=== PATIENT | female | born 1990 | race Caucasian/White ===

== ENCOUNTER → 2016-05-17 | Outpatient (CLI) | payer OTHER ==
--- NOTE | 2016-05-17 08:14 | US ---
EXAMINATION TYPE: US OB >= 14 wk fetus DATE OF EXAM: 05/17/2016 7:48 AM COMPARISON: First trimester ultrasound November 07, 2015. Limited third trimester ultrasound May 08, 2016 CLINICAL HISTORY: [id number] LARGE FOR DATES TECHNIQUE: Transabdominal (TA) pelvic ultrasound. GESTATIONAL AGE / DATING Physician Established: (36 weeks/0 days) EDC: 06/14/2016 Dates by LMP: does not correlate Dates by First Scan: (36 weeks/0 days) EDC: 06/14/2016 Dates by Current Scan: (35 weeks/3 days) EDC: 06/18/2016 SURVEY IUP: Single PLACENTA: Anterior PREVIA: No Previa KATHY: 7.1 cm Oligohydramnios borderline CERVICAL LENGTH (transabdominal: norm > 3.0cm): 4.4 cm BIOMETRY PRESENTATION: Vertex BPD: 8.7 cm 35 weeks / 1 days HC: 31.8 cm 35 weeks / 6 days AC: 30.5 cm 34 weeks / 4 days FL: 7.0 cm 36 weeks / 0 days ESTIMATED WEIGHT IN GRAMS: 2583 grams ESTIMATED WEIGHT IN LBS/OZS: 5 lbs. 11 oz. WEIGHT PERCENTAGE BASED ON ESTABLISHED DATES: 26% HC/AC: 1.0 Normal FL/AC: 23% Normal HEART RATE: 142 bpm RHYTHM: Normal TECHNOLOGIST IMPRESSION: low fluid Amniotic fluid index is 7.1 which is lower limits of normal, and is measured decreased from most rece nt study at 10.0. IMPRESSION: As above. Office aware of today's KATHY value.
== END | disposition home or self-care (01) ==
LOC: RADUSWWP 07:19
PROVIDERS: ATTEND Obstetrics & Gynecology
DX: O36.63X0 Maternal care for excessive fetal growth, third trimester, not applicable or unspecified (principal); Z3A.36 36 weeks gestation of pregnancy
CPT/HCPCS: 76805

== ENCOUNTER 2016-05-21 20:53 | Inpatient (IN) | payer OTHER ==
[2016-05-21 21:25] LABS: Appearance,Urine Clear (Clear); Bilirubin,Urine Negative (Negative); Glucose,Urine (UA) Negative (Negative); Ketones,Urine Negative (Negative); Leukocyte Esterase,Urine Negative (Negative); Nitrite,Urine Negative (Negative); Protein,Urine Negative (Negative); Specific Gravity,Urine 1.005 (1.001-1.035); UA Billing (MACRO vs. MICRO) CHEM; Urobilinogen,Urine <2.0 mg/dL (<2.0)
[2016-05-21 22:55] LABS: Basophils % (A) 0 %; CH 28.3; Eosinophils # (A) 0.1 k/uL (0-0.7); Eosinophils % (A) 2 %; HCT 33.7 % (34.0-46.0); HDW 2.47; HGB 11.4 gm/dL (11.4-16.0); Luc # (Auto) 0.11; Luc % (Auto) 2; Lymphocytes # (A) 0.9 k/uL (1.0-4.8); Lymphocytes % (A) 13 %; MCH 28.2 pg (25.0-35.0); MCHC 33.7 g/dL (31.0-37.0); MCV 83.6 fL (80.0-100.0); Mean Platelet Volume 6.7; Monocytes # (A) 0.3 k/uL (0-1.0); Monocytes % (A) 5 %; Neutrophils # (A) 5.5 k/uL (1.3-7.7); Neutrophils % (A) 79 %; RBC 4.04 m/uL (3.80-5.40); RDW 13.7 % (11.5-15.5); WBC (Perox) 7.51
[2016-05-21 23:10] LABS: ALT 32 U/L (9-52); AST 20 U/L (14-36); LDH 365 U/L (313-618); Non-African American GFR(MDRD) >60 (>60 ml/min/1.73 sqM); Uric Acid 6.5 mg/dL (3.7-7.4)
[2016-05-21 23:18] VITALS: BMI 45.1
--- NOTE | 2016-05-21 23:49 | P.HPOB ---
History of Present Illness H&P Date: 05/21/16 Chief Complaint: High blood pressure and low amniotic fluid. This patient is a 26-year-old 1 para 0 female estimated date of confinement 06/14/2016 estimated gestational age 36-4/7 weeks gestation who presents to labor and delivery with complaints of low amniotic fluid and she also "knows her blood pressure is high". Patient states that she did not check her blood pressure but it has been high in the office and she has concerns about at this evening. Patient also states that she has low amniotic fluid but has not been leaking. Patient's blood pressures in the office most recently have ranged from 140-156/84-100. Patient apparently had a preeclampsia evaluation 2 weeks ago that was negative, however most recent ultrasound on May 17 showed the amniotic fluid index to be low at 7.1 cm. Patient's blood pressures remain elevated here tonight with the highest being 150/94 and 165/91. Patient denies any headaches, but does note that she is swollen. Patient has had approximately 120 pound weight gain during this . care is per Dr. Harris. Review of Systems Constitutional: Denies chills, Denies fever Cardiovascular: Denies chest pain, Denies shortness of breath Respiratory: Denies cough Gastrointestinal: Reports heartburn Genitourinary: Reports as per HPI, Reports Menstruation: Reports amenorrhea Musculoskeletal: Denies myalgias Psychiatric: Denies anxiety, Denies depression Endocrine: Denies fatigue, Denies weight change Past Medical History Past Medical History: Asthma History of Any Multi-Drug Resistant Organisms: None Reported Past Surgical History: No Surgical Hx Reported Past Anesthesia/Blood Transfusion Reactions: No Reported Reaction Past Psychological History: Depression Smoking Status: Never smoker Past Alcohol Use History: None Reported Past Drug Use History: None Reported - Past Family History Father Family Medical History: No Reported History Medications and Allergies Home Medications Medication Instructions Recorded Confirmed Type Pnv with Ca,No.72/Iron/FA 1 tab PO DAILY 11/07/15 05/21/16 History [ Plus Tablet] Allergies Allergy/AdvReac Type Severity Reaction Status Date / Time No Known Allergies Allergy Verified 05/21/16 21:09 Exam - Vital Signs Vital signs: Vital Signs Temp Pulse Resp BP 05/21/16 23:09 97.2 F L 106 H 16 141/91 Intake and Output 05/21/16 05/21/16 05/22/16 14:59 22:59 06:59 Other: Weight 134.717 kg 134.717 kg Patient Weight 05/22/16 06:59 Weight 134.717 kg - OBG Physical Exam Abdomen: bowel sounds normal, no diffuse tenderness, no bruit present, no guarding noted, no hepatomegaly, no splenomegaly, no mass Vulva: both: normal Uterus: enlarged Results Uric acid is normal however slightly elevated at 6.5. Labs otherwise were normal. 24 urine is in process. Result Diagrams: 05/21/16 22:15 05/21/16 22:15 Abnormal Lab Results - Last 24 Hours (Table) 05/21/16 Range/Units 22:15 Hct 33.7 L (34.0-46.0) % Lymphocytes # 0.9 L (1.0-4.8) k/uL Assessment and Plan (1) Third trimester Narrative/Plan: This is a 26-year-old 1 para 0 female 36-4/7 weeks gestation with hypertension and known oligohydramnios. Plan at this time is to admit this patient for serial blood pressures, repeat 24-hour urine, and repeat ultrasound in the morning. At this time there is no evidence of maternal compromise. Dr. Harris will resume care in the morning and decide further antepartum surveillance versus delivery. Status: Acute (2) Gestational hypertension Status: Acute (3) Oligohydramnios Status: Acute
--- NOTE | 2016-05-22 11:35 | US ---
EXAMINATION TYPE: US OB >= 14 wk fetus DATE OF EXAM: 05/22/2016 10:17 AM COMPARISON: US on PACS May 17, 2016. CLINICAL HISTORY: Complete OB US TECHNIQUE: Transabdominal (TA) pelvic ultrasound GESTATIONAL AGE / DATING Physician Established: (36 weeks/5 days) EDC: 06/14/2016 Dates by LMP: 07/27/15 (40+ Does not correlate. EDC: 05/02/16 Dates by First Scan: (36 weeks/5 days) EDC: 06/14/16 Dates by Current Scan: (35 weeks/4 days) EDC: 06/22/16 SURVEY IUP: Single PLACENTA: Anterior PREVIA: No Previa KATHY: 17.5 cm CERVICAL LENGTH (transabdominal: norm > 3.0cm): 3.2 cm (Supplemental transvaginal imaging performed to verify cervical length.) BIOMETRY PRESENTATION: Vertex LIE: spine to maternal left BPD: 8.8 cm 35 weeks / 5 days HC: 32.0 cm 36 weeks / 0 days AC: 31.4 cm 35 weeks / 3 days FL: 7.0 cm 36 weeks / 0 days ESTIMATED WEIGHT IN GRAMS: 2735 grams ESTIMATED WEIGHT IN LBS/OZS: 6 lbs. 0 oz. WEIGHT PERCENTAGE BASED ON ESTABLISHED DATES: 26.9% HC/AC: 1.0 FL/AC: 22.0 HEART RATE: 154 bpm RHYTHM: Normal TECHNOLOGIST IMPRESSION: Viable intrauterine . Amniotic fluid index is upper limits of norm al measuring 17.5 cm, growth is appropriate. Single live intrauterine gestation is redemonstrated. biometry measurements remain congruent. A mniotic fluid index is measured in the upper limits of normal on today's study. IMPRESSION: As above.
[2016-05-23 00:28] LABS: Mis test requested (Non-blood) 24 HOUR URINE TP
--- NOTE | 2016-05-23 08:37 | P.PN ---
Progress Note - Text 26 year old is 36 weeks 6 days today. She was admitted for increased BPs and to obtain a 24 hour urine. Her BPs are remaining elevated and 24 hour urine protein is 350mg. She has gestational hypertension since 30 weeks and now mild pre-eclampsia. I discussed a plan with the patient of cervical ripening tonight for induction tomorrow at 37 weeks. NSTs are reactive and she is not vero. Cervix is Closed/50/-3. She denies headache, vision changes, shortness of breath or swelling.
[2016-05-23] MEDS ORDERED: DINOPROSTONE 10 MG INSERT.ER VAGINAL ONE (09:00)
[2016-05-24] MEDS ORDERED: METHYLERGONOVINE 0.2 MG/ML 1 ML AMP IM PRN (05:02)
[2016-05-24] MEDS ORDERED: CARBOPROST TROMETHAMINE 250 MCG/ML 1 ML AMP IM PRN (05:02)
[2016-05-24] MEDS ORDERED: LIDOCAINE 1% (PF) 10 MG/ML (30 ML SDV) SQ PRN (05:02)
[2016-05-24] MEDS ORDERED: OXYTOCIN 10 UNIT/ML 1 ML VIAL IM PRN (05:02)
[2016-05-24] MEDS ORDERED: TERBUTALINE 1 MG/ML VIAL SQ PRN (05:02)
[2016-05-24] MEDS ORDERED: OXYTOCIN 30 UNITS/500 ML NS 30 UNIT in SALINE 1 500ML.BAG IV SCH (05:15)
[2016-05-24] MEDS: LACTATED RINGERS 1,000 ML IV SCH ×4 (05:45→21:40)
[2016-05-24 05:56] LABS: Basophils % (A) 0 %; CH 28.2; Eosinophils # (A) 0.1 k/uL (0-0.7); Eosinophils % (A) 1 %; HCT 36.4 % (34.0-46.0); HDW 2.46; HGB 12.1 gm/dL (11.4-16.0); Luc # (Auto) 0.16; Luc % (Auto) 1; Lymphocytes # (A) 1.7 k/uL (1.0-4.8); Lymphocytes % (A) 14 %; MCH 27.7 pg (25.0-35.0); MCHC 33.3 g/dL (31.0-37.0); MCV 83.2 fL (80.0-100.0); Mean Platelet Volume 6.7; Monocytes # (A) 0.5 k/uL (0-1.0); Monocytes % (A) 4 %; Neutrophils # (A) 9.1 k/uL (1.3-7.7); Neutrophils % (A) 79 %; RBC 4.37 m/uL (3.80-5.40); RDW 13.8 % (11.5-15.5); WBC 11.5 k/uL (3.8-10.6); WBC (Perox) 11.75
[2016-05-24 06:05] LABS: Partial Thromboplastin Time 26.4 sec (22.0-30.0); Prothrombin Time 9.8 sec (9.0-12.0)
[2016-05-24] MEDS: BUTORPHANOL 1 MG/ML 1 ML VIAL IV PRN ×2 (16:21→18:56)
[2016-05-24] MEDS ORDERED: CITRIC ACID-SODIUM CITRATE 15 ML CUP PO ONE (20:09)
[2016-05-24] MEDS ORDERED: ceFAZolin 3 GM in SODIUM CHLORIDE 0.9% 100 ML IVPB ONE (20:09)
[2016-05-24] MEDS ORDERED: OXYTOCIN 10 UNIT/ML 1 ML VIAL IM ONE (20:48)
[2016-05-24] MEDS ORDERED: KETOROLAC 30 MG/ML 1 ML VIAL ONE (20:48)
[2016-05-24] MEDS ORDERED: MORPHINE SULFATE (PF) 0.3 MG/0.3 ML SYR ONE (20:48)
[2016-05-24] MEDS ORDERED: ONDANSETRON 4 MG/2 ML VIAL ONE (20:48)
[2016-05-24] MEDS ORDERED: NALBUPHINE 10 MG/ML AMPUL ONE (20:48)
[2016-05-24] MEDS ORDERED: ZOLPIDEM 5 MG TAB PO PRN (21:28)
[2016-05-24] MEDS ORDERED: METOCLOPRAMIDE 5 MG/ML 2 ML VIAL IVP PRN (21:28)
[2016-05-24] MEDS ORDERED: SIMETHICONE 80 MG CHEWABLE PO PRN (21:28)
[2016-05-24] MEDS ORDERED: KETOROLAC 30 MG/ML 1 ML VIAL IVP PRN (21:28)
[2016-05-24] MEDS ORDERED: diphenhydrAMINE 25 MG CAP PO PRN (21:28)
[2016-05-24] MEDS ORDERED: LANOLIN CREAM 5 GM TUBE TOPICAL PRN (21:28)
[2016-05-24] MEDS ORDERED: Acetaminophen-Codeine 300-30mg TAB PO PRN (21:28)
[2016-05-24] MEDS ORDERED: diphenhydrAMINE 50 MG CAP PO PRN (21:28)
[2016-05-24] MEDS ORDERED: NALOXONE 0.4 MG/ML 1 ML VIAL IV PRN (21:28)
[2016-05-24] MEDS ORDERED: ONDANSETRON 4 MG/2 ML VIAL IVP PRN (21:28)
[2016-05-24] MEDS ORDERED: ACETAMINOPHEN TAB 325 MG TAB PO PRN (21:28)
[2016-05-24] MEDS ORDERED: diphenhydrAMINE 50 MG/ML 1 ML VIAL IVP PRN ×2 (21:28)
--- NOTE | 2016-05-24 21:35 | P.OP ---
Date of Procedure: 05/24/16 Preoperative Diagnosis: 1. at 37 weeks 2. Mild preeclampsia 3. Failure to progress Postoperative Diagnosis: 1. at 37 weeks 2. Mild preeclampsia 3. Failure to progress Procedure(s) Performed: Primary low transverse Anesthesia: spinal Surgeon: Melonie Harris Outside Sales Engineer #1: Jesus Toney Estimated Blood Loss (ml): 600 IV fluids (ml): 800 Urine output (ml): 200 Pathology: other (Placenta) Condition: stable Disposition: floor Indications for Procedure: 26-year-old presented with increased blood pressures. She was admitted for 24-hour urine protein which came back 350 mg. She was diagnosed with mild preeclampsia and at 37 weeks induction of labor was indicated. Her cervix was closed, 50% effaced and -3 station. Cervidil was placed and left for 12 hours. In the morning she was fingertip to 1 cm dilated but still thick. Pitocin was started. Amniotomy was performed around 12:30 in the afternoon. Despite Pitocin and adequate contractions she did not dilate past 1 cm. heart tones remained 140-145 with moderate variability and reactive. Informed consent was obtained and section called. Operative Findings: Viable male, Apgars 4 at 1 minute, 7 at 5 minutes, 9 at 10 minutes. Weight 6 pounds. Description of Procedure: Patient was taken to the operating room where spinal anesthesia was found be adequate. She was prepped and draped in normal sterile fashion in dorsal supine position with a leftward tilt. Pfannenstiel skin incision was made the scalpel and carried through to the underlying layer of fascia with the scalpel. Fascia was incised in midline and carried bilaterally with the Lafleur scissors. The superior aspect of the fascial incision was grasped with Ruth clamps elevated and the underlying rectus muscles dissected off with the Lafleur's. Attention was then turned to inferior aspect of same incision which in a similar fashion was grasped tented up and the underlying rectus muscles dissected off with the Lafleur's. The rectus muscles were the midline and the peritoneum was identified tented up and entered sharply with the scalpel. The incision was extended superiorly and inferiorly with good visualization of the bladder. The bladder blade was inserted and the vesicouterine peritoneum was incised the Metzenbaums then carried bilaterally and bladder flap created digitally. A low transverse incision was then made on the uterus with the scalpel. This was carried bilaterally and digital manner. 's head delivered atraumatically, nose and mouth bulb suctioned, cord clamped and cut, handed off to waiting nurses. Apgars 4,7, 9 weight 6 lbs. Placenta delivered manually, intact with three-vessel cord. The uterus is exteriorized and cleared of all clots and debris. The uterine incision was closed with 0 Vicryl in a running locked fashion. Second layer of the same sutures used in imbricating fashion to obtain excellent hemostasis. Bladder flap was then reapproximated using 2-0 Vicryl in a running fashion. Both ovaries and tubes appeared normal. The uterus was placed back into the abdomen. The peritoneum was reapproximated using 2-0 Vicryl in a running fashion. The muscles were reapproximated using 2-0 Vicryl in interrupted fashion. The fascia was reapproximated using 0 Vicryl in a running fashion. The subcutaneous tissues closed with 3-0 Vicryl running fashion. The skin was closed art. Patient tolerated the procedure well, sponge and instrument counts were correct times 2 and she was taken to the recovery room in stable condition.
[2016-05-24] MEDS: OXYTOCIN 30 UNITS/500 ML NS 30 UNIT in SALINE 1 500ML.BAG IV SCH (23:42)
[2016-05-25] MEDS: LACTATED RINGERS 1,000 ML IV SCH ×2 (05:19→20:50)
[2016-05-25] MEDS: OXYTOCIN 30 UNITS/500 ML NS 30 UNIT in SALINE 1 500ML.BAG IV SCH ×2 (05:22→20:51)
[2016-05-25] MEDS ORDERED: diphenhydrAMINE 50 MG/ML 1 ML VIAL IVP PRN (08:13)
[2016-05-25] MEDS ORDERED: KETOROLAC 30 MG/ML 1 ML VIAL IVP PRN (08:13)
[2016-05-25] MEDS ORDERED: MORPHINE SULFATE 4 MG/ML SYRINGE IVP PRN (08:13)
[2016-05-25] MEDS ORDERED: NALOXONE 0.4 MG/ML 1 ML VIAL IV PRN (08:13)
[2016-05-25] MEDS ORDERED: NALBUPHINE 10 MG/ML AMPUL IV PRN (08:13)
--- NOTE | 2016-05-25 08:14 | P.PNOBGPC ---
Subjective - Subjective Principal diagnosis: Status post primary low transverse postop day #1 Interval history: Patient seen and examined. Denies nausea, vomiting, chest pain, shortness of breath or calf pain. No flatus yet Patient reports: Reports appetite normal, Reports pain well controlled, Reports ambulating normally : doing well Objective - Vital Signs Latest vital signs: Vital Signs Temp Pulse Resp BP Pulse Ox 05/25/16 03:44 98.1 F 75 16 142/90 99 05/24/16 23:30 97.6 F 85 16 135/72 05/24/16 23:00 72 16 136/66 05/24/16 22:30 96.8 F L 79 16 120/73 05/24/16 22:15 80 16 129/66 05/24/16 22:00 79 16 130/60 05/24/16 21:45 77 16 133/65 99 05/24/16 21:30 96.7 F L 99 16 116/55 99 Intake and Output 05/24/16 05/25/16 05/25/16 22:59 06:59 14:59 Intake Total 800 Output Total 1600 500 Balance -800 -500 Intake: IV 800 Output: Urine 400 500 Uretheral (Desai) 300 Estimated Blood Loss 1200 Other: # Voids 1 # Bowel Movements 0 - Exam Lungs: bilateral: normal Chest: Normal S1, Normal S2 Extremities: Present: normal Abdomen: Present: normal appearance, soft. Absent: distention, tenderness Incision: Present: normal, dry, intact Uterus: Present: normal, firm Assessment and Plan (1) Mild preeclampsia Current Visit: Yes Status: Acute Code(s): O14.00 - MILD TO MODERATE PRE- ECLAMPSIA, UNSPECIFIED TRIMESTER SNOMED Code(s): 03773552 (2) Status post primary low transverse section Narrative/Plan: 1. Continue postoperative care 2. Increasing dilation 3. Regular diet with flatus Current Visit: Yes Status: Acute Code(s): Z98.891 - HISTORY OF UTERINE SCAR FROM PREVIOUS SURGERY SNOMED Code(s): 146238016
[2016-05-25 08:40] LABS: Basophils % (A) 0 %; CH 28.1; CHCM 33.4; Eosinophils % (A) 0 %; HCT 32.9 % (34.0-46.0); HDW 2.42; Luc # (Auto) 0.24; Luc % (Auto) 2; Lymphocytes # (A) 2.3 k/uL (1.0-4.8); Lymphocytes % (A) 19 %; MCH 28.3 pg (25.0-35.0); MCHC 33.5 g/dL (31.0-37.0); MCV 84.7 fL (80.0-100.0); Mean Platelet Volume 6.8; Monocytes # (A) 0.4 k/uL (0-1.0); Monocytes % (A) 4 %; Neutrophils # (A) 8.7 k/uL (1.3-7.7); Neutrophils % (A) 75 %; RBC 3.88 m/uL (3.80-5.40); RDW 13.9 % (11.5-15.5); WBC 11.7 k/uL (3.8-10.6); WBC (Perox) 12.29
--- NOTE | 2016-05-25 09:03 | P.PN ---
Progress Note - Text Postop day 1 from under spinal anesthesia with intrathecal morphine given for postop pain management. Patient is doing well. Pain is well controlled. On visual analog scale 3/10 Mild itching present No nausea or vomiting reported. No Headache or weakness and numbness in the legs. No complications from spinal anesthesia.
[2016-05-25] MEDS: SENNOSIDES-DOCUSATE SODIUM 1 EACH TAB PO SCH ×2 (16:10→19:39)
[2016-05-26] MEDS: SENNOSIDES-DOCUSATE SODIUM 1 EACH TAB PO SCH ×2 (09:44→19:39)
--- NOTE | 2016-05-26 12:16 | P.PNOBGPC ---
Subjective - Subjective Principal diagnosis: Status post primary section postoperative day #2 Interval history: Patient is doing well. She is breast-feeding. She has been urinating without difficulty. She is passing flatus and bowel movement. Patient reports: Reports appetite normal, Reports voiding normally, Reports pain well controlled, Reports ambulating normally : doing well, nursing well Objective - Vital Signs Latest vital signs: Vital Signs Temp Pulse Resp BP Pulse Ox 05/26/16 08:00 98.2 F 104 H 20 141/80 98 05/26/16 00:00 97.7 F 99 18 145/67 100 05/25/16 20:00 98.1 F 88 18 125/78 98 05/25/16 16:00 98.2 F 90 20 133/70 98 Intake and Output 05/25/16 05/26/16 05/26/16 22:59 06:59 14:59 Output Total 450 500 Balance -450 -500 Output: Urine 450 500 Other: # Voids 1 1 - Exam Extremities: Present: normal. Absent: tenderness Abdomen: Present: normal appearance, soft (Positive bowel sounds 4). Absent: distention, tenderness Incision: Present: normal, dry, intact. Absent: erythematous Uterus: Present: normal, firm. Absent: tenderness Assessment and Plan (1) delivery delivered Narrative/Plan: Impression is status post delivery postoperative day #2. Patient is doing well but would like to stay 1 more day. Will anticipate discharge home tomorrow. Current Visit: Yes Status: Acute Code(s): O82 - ENCOUNTER FOR DELIVERY WITHOUT INDICATION SNOMED Code(s): 857071394
--- NOTE | 2016-05-26 12:22 | P.DS ---
Providers Date of admission: 05/23/16 12:00 Expected date of discharge: 05/27/16 Attending physician: Melonie Harris Primary care physician: Melonie Harris - Discharge Diagnosis(es) (1) delivery delivered Current Visit: Yes Status: Acute Hospital Course: This is a 26-year-old female 1 para 0 at 37 weeks who initially presented with elevated blood pressures. She underwent a 24-hour urine collection which did show elevated protein. She therefore underwent induction of labor. She did require a primary low transverse section secondary to failure to progress. She delivered a viable male infant with scores of 9 at 1 minute and 9 at 5 minutes and infant weight of 6 pounds on 2016. Her postoperative course is essentially uncomplicated. She is currently postoperative day #2 and is passing flatus and bowel movement. She is urinating without difficulty. She is breast-feeding but baby is somewhat fussy. Vital signs are stable with blood pressures in the 140s over 80s. Abdomen is soft with positive bowel sounds 4 and incision clean dry and intact. Extremities show negative Homans. Impression is status post primary low transverse section postoperative day #2. Plan is to discharge home tomorrow morning. Gwen will be removed and Steri-Strips placed prior to discharge. She will be given prescriptions for pain medication and a breast pump. She is advised to follow up with Dr. Harris in 1 week in the office for blood pressure and postoperative check. She is also advised to follow up in the office in 6 weeks for a check. Routine postoperative instructions are given. She is advised to call the office if she has any further questions or concerns prior to her appointment times. Procedures: 24 urine collection Oxytocin induction of labor Primary low transverse section on 05/24/2016 Patient Condition at Discharge: Stable Plan - Discharge Summary New Discharge Prescriptions: Acetaminophen-Codeine 300-30mg [Tylenol w/codeine #3] 1 each PO Q4HR PRN #30 tab PRN Reason: Mild Pain Ibuprofen [Motrin] 600 mg PO Q6HR PRN #60 tab PRN Reason: Mild Pain Or Fever >= 100.5 Discharge Medication List Pnv with Ca,No.72/Iron/FA [ Plus Tablet] 1 tab PO DAILY 11/07/15 [ History] Acetaminophen-Codeine 300-30mg [Tylenol w/codeine #3] 1 each PO Q4HR PRN #30 tab 05/26/16 [Rx] Ibuprofen [Motrin] 600 mg PO Q6HR PRN #60 tab 05/26/16 [Rx] Follow up Appointment(s)/Referral(s): Melonie Harris DO [Primary Care Provider] - 1 Week Activity/Diet/Wound Care/Special Instructions: Instructions 1. Do not begin any exercise program for 3 weeks. 2. Do not resume sexual relations for 3 weeks or longer if uncomfortable. 3. You may take tub baths or showers at any time. 4. You may use tampons if desired after 3 weeks. 5. Keep the area of episiotomy (stitches) clean and dry. 6. If you are not nursing, wear a good fitting, supportive bra during the day and limit fluid intake for at least 1 week to prevent breast engorgement. 7. Call the office, [phone], within the next week to make appointment for your 6 week checkup if it has not already been made. 8. Report any of the following occurrences to the doctor promptly: a. Heavy, excessive bleeding b. Chills, fever c. Burning or frequency of urination d. Pain or redness and breasts if nursing e. Increasing pain or swelling in episiotomy (stitches). In addition to the above instructions, the following additional should be followed: 1. No heavy lifting or straining (exercising) until after 6 week checkup. 2. Keep abdominal incision clean and dry: You may wear a dressing if more comfortable. 3. Make office appointment for 10 days after going home or as instructed by her doctor. Discharge Disposition: HOME SELF-CARE
[2016-05-26] MEDS: Acetaminophen-Codeine 300-30mg TAB PO PRN (19:38)
[2016-05-26 20:56] VITALS: RESP 18
[2016-05-26] MEDS: IBUPROFEN 600 MG TAB PO PRN (23:00)
[2016-05-27] MEDS: Acetaminophen-Codeine 300-30mg TAB PO PRN (03:53)
[2016-05-27] MEDS: IBUPROFEN 600 MG TAB PO PRN (08:08)
[2016-05-27] MEDS: SENNOSIDES-DOCUSATE SODIUM 1 EACH TAB PO SCH (08:09)
[2016-05-27 08:16] VITALS: TEMP 98.1
[2016-05-27 10:01] VITALS: BP 146/87; PULSE 91
== END 2016-05-27 16:00 | disposition home or self-care (01) | DRG 765 ==
LOC: FBPOP 20:53 → 4FBP 21:58 → OBSVTOIN 05-23 12:00
PROVIDERS: ADMIT Obstetrics & Gynecology; ATTEND Obstetrics & Gynecology
PROC: 10907ZC Drainage of Amniotic Fluid, Therapeutic from Products of Conception, Via Natural or Artificial Opening (ICD-10-PCS; 2016-05-24)
PROC: 3E0P7GC Introduction of Other Therapeutic Substance into Female Reproductive, Via Natural or Artificial Opening (ICD-10-PCS; 2016-05-24)
PROC: 3E033VJ Introduction of Other Hormone into Peripheral Vein, Percutaneous Approach (ICD-10-PCS; 2016-05-24)
PROC: 3E0S3NZ Introduction of Analgesics, Hypnotics, Sedatives into Epidural Space, Percutaneous Approach (ICD-10-PCS; 2016-05-24)
PROC: 10D00Z1 Extraction of Products of Conception, Low, Open Approach (ICD-10-PCS; principal; 2016-05-24 20:50)
DX: O14.04 Mild to moderate pre-eclampsia, complicating childbirth (principal); O41.03X0 Oligohydramnios, third trimester, not applicable or unspecified; O61.0 Failed medical induction of labor; O13.4 Gestational [pregnancy-induced] hypertension without significant proteinuria, complicating childbirth; O99.52 Diseases of the respiratory system complicating childbirth; O99.344 Other mental disorders complicating childbirth; F32.9 Major depressive disorder, single episode, unspecified; J45.909 Unspecified asthma, uncomplicated; O62.2 Other uterine inertia; Z3A.37 37 weeks gestation of pregnancy; Z37.0 Single live birth
CPT/HCPCS: 59025; 76805; 81003; 81050; 82565; 83615; 84112; 84156; 84450; 84460; 84550; 85025; 85610; 85730; 86850; 86900; 86901; 88307; 99213

== ENCOUNTER 2017-07-15 11:31 | Emergency (ER) | payer OTHER ==
[2017-07-15 11:58] VITALS: BP 143/83; PULSE 86; RESP 20; TEMP 98
--- NOTE | 2017-07-15 12:22 | ED ---
General Adult HPI - General Chief complaint: Upper Respiratory Infection Stated complaint: ear pain Time Seen by Provider: 07/15/17 12:12 Source: patient, RN notes reviewed Mode of arrival: ambulatory Limitations: no limitations - History of Present Illness Initial comments: Patient 27-year-old female presenting to the emergency room today with chief complaint of increased sinus congestion and popping of the right ear that happened earlier today. She states over the last week she's had increased sinuses she does note some drainage. Patient states that she blew her nose earlier today and felt a pop and right ear. Patient states that at first the socket was somewhat muffled but has now gone back to normal. Patient denies any other complaints. Patient denies any recent fever, chills, shortness of breath, chest pain, back pain, abdominal pain, nausea or vomiting, numbness or tingling, dysuria or hematuria, constipation or diarrhea, headaches or visual changes, or any other complaints. - Related Data Home Medications Medication Instructions Recorded Confirmed Pnv,Calcium 72/Iron/Folic Acid 1 tab PO DAILY 11/07/15 05/21/16 [ Plus Tablet] Previous Rx's Medication Instructions Recorded Acetaminophen-Codeine 300-30mg 1 each PO Q4HR PRN #30 tab 05/26/16 [Tylenol w/codeine #3] Ibuprofen [Motrin] 600 mg PO Q6HR PRN #60 tab 05/26/16 Amoxicillin 500 mg PO Q8H 10 Days day 07/15/17 Allergies Allergy/AdvReac Type Severity Reaction Status Date / Time No Known Allergies Allergy Verified 07/15/17 11:54 Review of Systems ROS Statement: Those systems with pertinent positive or pertinent negative responses have been documented in the HPI. ROS Other: All systems not noted in ROS Statement are negative. Past Medical History Past Medical History: Asthma History of Any Multi-Drug Resistant Organisms: None Reported Past Surgical History: No Surgical Hx Reported Past Anesthesia/Blood Transfusion Reactions: No Reported Reaction Past Psychological History: Depression Smoking Status: Never smoker Past Alcohol Use History: None Reported Past Drug Use History: None Reported - Past Family History Father Family Medical History: No Reported History General Exam - General Exam Comments Initial Comments: General: The patient is awake and alert, in no distress, and does not appear acutely ill. Eye: Pupils are equal, round and reactive to light, extra-ocular movements are intact. No nystagmus. There is normal conjunctiva bilaterally. No signs of icterus. Ears, nose, mouth and throat: There are moist mucous membranes and no oral lesions. TM on the right appears normal no sign of rupture. Patient does have tenderness over the sinuses. Neck: The neck is supple, there is no tenderness or JVD. Cardiovascular: There is a regular rate and rhythm. No murmur, rub or gallop is appreciated. Respiratory: Lungs are clear to auscultation, respirations are non-labored, breath sounds are equal. No wheezes, stridor, rales, or rhonchi. Musculoskeletal: Normal ROM, no tenderness. Strength 5/5. Sensation intact. Pulses equal bilaterally 2+. Neurological: A&O x 3. CN II-XII intact, There are no obvious motor or sensory deficits. Coordination appears grossly intact. Speech is normal. Skin: Skin is warm and dry and no rashes or lesions are noted. Psychiatric: Cooperative, appropriate mood & affect, normal judgment. Limitations: no limitations Course Vital Signs 07/15/17 11:54 Temperature 98 F Pulse Rate 86 Respiratory 20 Rate Blood Pressure 143/83 O2 Sat by Pulse 97 Oximetry Medical Decision Making - Medical Decision Making Patient will be started on antibiotics cover for sinus infection. Was discussed about possible small ruptured eardrum. Advised that she should not get any water in the ear. Use cotton ball in the shower. Advised return for any other concerns. Disposition Clinical Impression: Acute sinusitis Disposition: HOME SELF-CARE Condition: Good Instructions: Sinusitis (ED) Additional Instructions: Please use medication as discussed. Please follow-up with family doctor in the next 2 days of symptoms have not improved. Please return to emergency room if the symptoms increase or worsen or for any other concerns. Prescriptions: Amoxicillin 500 mg PO Q8H 10 Days day Referrals: None,Stated [Primary Care Provider] - 1-2 days Time of Disposition: 12:20
== END 2017-07-15 12:38 | disposition home or self-care (01) ==
LOC: EC 11:31
DX: J01.90 Acute sinusitis, unspecified (principal)
CPT/HCPCS: 99283

== ENCOUNTER 2018-05-10 10:41 | Emergency (ER) | payer OTHER ==
[2018-05-10 10:46] VITALS: BP 145/103; PULSE 103; RESP 18; TEMP 98.2
--- NOTE | 2018-05-10 11:00 | ED ---
URI HPI - General Chief Complaint: Upper Respiratory Infection Stated Complaint: flu like symptoms Time Seen by Provider: 05/10/18 10:48 Source: patient, RN notes reviewed Mode of arrival: ambulatory Limitations: no limitations - History of Present Illness Initial Comments: 28 year old female presents emergency Department with chief complaint on Saturday and she had fever for the first to 3 days but has not return. Patient states she still feels achy and sore throat. Patient also has mild congestion or cough. Patient denies any difficulty breathing difficulty swallowing. NO KNOWN DRUG ALLERGIES. She otherwise has a benign past medical history. Denies any chance .of fever cough congestion sore throat. Patient states symptoms started - Related Data Home Medications Medication Instructions Recorded Confirmed Pnv,Calcium 72/Iron/Folic Acid 1 tab PO DAILY 11/07/15 05/21/16 [ Plus Tablet] Previous Rx's Medication Instructions Recorded Acetaminophen-Codeine 300-30mg 1 each PO Q4HR PRN #30 tab 05/26/16 [Tylenol w/codeine #3] Ibuprofen [Motrin] 600 mg PO Q6HR PRN #60 tab 05/26/16 Amoxicillin 500 mg PO Q8H 10 Days day 07/15/17 Allergies Allergy/AdvReac Type Severity Reaction Status Date / Time No Known Allergies Allergy Verified 07/15/17 11:54 Review of Systems ROS Statement: Those systems with pertinent positive or pertinent negative responses have been documented in the HPI. ROS Other: All systems not noted in ROS Statement are negative. Past Medical History Past Medical History: Asthma History of Any Multi-Drug Resistant Organisms: None Reported Past Surgical History: No Surgical Hx Reported Additional Past Surgical History / Comment(s): eye surgery as baby Past Anesthesia/Blood Transfusion Reactions: No Reported Reaction Past Psychological History: Depression Smoking Status: Never smoker Past Alcohol Use History: None Reported Past Drug Use History: None Reported - Past Family History Father Family Medical History: No Reported History General Exam Limitations: no limitations General appearance: alert, in no apparent distress Head exam: Present: atraumatic, normocephalic, normal inspection Eye exam: Present: normal appearance, PERRL, EOMI. Absent: scleral icterus, conjunctival injection, periorbital swelling ENT exam: Present: normal exam, normal oropharynx (No erythema, postnasal drainage noted), mucous membranes moist, TM's normal bilaterally, normal external ear exam Neck exam: Present: normal inspection, full ROM. Absent: tenderness, meningismus, lymphadenopathy Respiratory exam: Present: normal lung sounds bilaterally. Absent: respiratory distress, wheezes, rales, rhonchi, stridor Cardiovascular Exam: Present: regular rate, normal rhythm, normal heart sounds. Absent: systolic murmur, diastolic murmur, rubs, gallop, clicks Neurological exam: Present: alert, oriented X3, CN II-XII intact Skin exam: Present: warm, dry, intact, normal color. Absent: rash Course Vital Signs 05/10/18 10:43 Temperature 98.2 F Pulse Rate 103 H Respiratory 18 Rate Blood Pressure 145/103 O2 Sat by Pulse 99 Oximetry Medical Decision Making - Medical Decision Making 28-year-old female presented for upper respiratory symptoms. Patient had negative influenza negative chest x-ray. Patient has a viral URI's. Patient we discharged return parameters were discussed. - Lab Data Lab Results 05/10/18 Range/Units 10:54 Influenza Type A RNA Not Detected (Not Detectd) Influenza Type B (PCR) Not Detected (Not Detectd) Disposition Clinical Impression: Upper respiratory infection Disposition: HOME SELF-CARE Condition: Stable Instructions (If sedation given, give patient instructions): Upper Respiratory Infection (ED) Additional Instructions: Please return to the Emergency Department if symptoms worsen or any other concerns. Is patient prescribed a controlled substance at d/c from ED?: No Referrals: None,Stated [Primary Care Provider] - 1-2 days Time of Disposition: 11:38
--- NOTE | 2018-05-10 11:14 | XR ---
EXAMINATION TYPE: XR chest 2V DATE OF EXAM: 05/10/2018 COMPARISON: NONE HISTORY: Cough pain and flulike symptoms for one week. TECHNIQUE: Frontal and lateral views of the chest are obtained. FINDINGS: There is no focal air space opacity, pleural effusion, or pneumothorax seen. The cardiac silhouette size is within normal limits. The osseous structures are intact. IMPRESSION: No suspicious acute pulmonary process.
== END 2018-05-10 11:48 | disposition home or self-care (01) ==
LOC: EC 10:41
DX: J06.9 Acute upper respiratory infection, unspecified (principal)
CPT/HCPCS: 71046; 87502; 99283

== ENCOUNTER 2018-08-30 10:07 | Emergency (ER) | payer OTHER ==
[2018-08-30 10:13] VITALS: BP 139/77; PULSE 90; RESP 16; TEMP 97.9
--- NOTE | 2018-08-30 10:30 | ED ---
Wound/Laceration HPI - General Chief Complaint: Wound/Laceration Stated Complaint: Fb in foot Time Seen by Provider: 08/30/18 10:23 Source: patient Mode of arrival: ambulatory Limitations: no limitations - History of Present Illness Initial Comments: Monica is a 28-year-old female who presents the emergency department today for concern that there is a piece of broken ceramic in her left foot. Patient reports that yesterday she stepped on ceramic, as she had a cut on her foot and it was bleeding. she reports that since that time she's continued to feel foreign body sensation and a sharp pain in the cut and is concerned that there may still be ceramic stuck in there. Patient's tetanus is up-to-date 3 years. - Related Data Home Medications Medication Instructions Recorded Confirmed Pnv,Calcium 72/Iron/Folic Acid 1 tab PO DAILY 11/07/15 05/21/16 [ Plus Tablet] Previous Rx's Medication Instructions Recorded Acetaminophen-Codeine 300-30mg 1 each PO Q4HR PRN #30 tab 05/26/16 [Tylenol w/codeine #3] Ibuprofen [Motrin] 600 mg PO Q6HR PRN #60 tab 05/26/16 Amoxicillin 500 mg PO Q8H 10 Days day 07/15/17 Allergies Allergy/AdvReac Type Severity Reaction Status Date / Time No Known Allergies Allergy Verified 08/30/18 10:13 Review of Systems ROS Statement: Those systems with pertinent positive or pertinent negative responses have been documented in the HPI. ROS Other: All systems not noted in ROS Statement are negative. Past Medical History Past Medical History: Asthma History of Any Multi-Drug Resistant Organisms: None Reported Past Surgical History: No Surgical Hx Reported Additional Past Surgical History / Comment(s): eye surgery as baby Past Anesthesia/Blood Transfusion Reactions: No Reported Reaction Past Psychological History: Depression Smoking Status: Never smoker Past Alcohol Use History: None Reported Past Drug Use History: None Reported - Past Family History Father Family Medical History: No Reported History General Exam - General Exam Comments Initial Comments: Physical Exam GENERAL: Patient is well-developed and well-nourished. Patient is nontoxic and well-hydrated and is in no distress. HENT: Normocephalic, Atraumatic EYES: PERRL, EOMI PULMONARY: Unlabored respirations CARDIOVASCULAR: RRR Warm and well perfused extremities ABDOMEN: Non-distended SKIN: Approximately 7 mm laceration just at the heel of the left foot, no obvious foreign body : Deferred NEUROLOGIC: Patient is alert and oriented x3. Moving all extremities spontaneously MUSCULOSKELETAL: Normal extremities with adequate strength and full range of motion. No lower extremity swelling or edema. No calf tenderness. PSYCHIATRIC: Normal psychiatric evaluation Limitations: no limitations Course Vital Signs 08/30/18 10:10 Temperature 97.9 F Pulse Rate 90 Respiratory 16 Rate Blood Pressure 139/77 O2 Sat by Pulse 99 Oximetry Medical Decision Making - Medical Decision Making Patient was seen and evaluated history obtained from patient and sent x-rays obtained to observe for any ceramic She does confirm a radiopaque foreign body consistent with ceramic Area was anesthetized with approximately 1 mL of 1% lidocaine the wound was explored, ceramic foreign body was removed, patient tolerated the procedure well Patient was discharged home in stable condition with instructions on proper wound care penetrating injury. Disposition Clinical Impression: Foreign body (FB) in soft tissue Disposition: HOME SELF-CARE Condition: Stable Instructions (If sedation given, give patient instructions): Soft Tissue F oreign Body (ED) Is patient prescribed a controlled substance at d/c from ED?: No Referrals: Trevor Alford MD [Primary Care Provider] - 1-2 days
[2018-08-30] MEDS ORDERED: LIDOCAINE 1% INJ 10MG/ML (20 ML MDV) SQ ONE (10:34)
--- NOTE | 2018-08-30 11:19 | XR ---
EXAMINATION TYPE: XR foot limited LT DATE OF EXAM: 08/30/2018 COMPARISON: None HISTORY: Ceramic dish, foreign body healed TECHNIQUE: 2 view left foot FINDINGS: There is a radiopaque foreign body within the soft tissues at approximately the mid level o f the calcaneus subcutaneous tissues of the heel. No additional foreign bodies are evident. No acute fractures or dislocations are evident. IMPRESSION: 1. Radiopaque foreign body within the subcutaneous tissues plantar foot.
== END 2018-08-30 11:05 | disposition home or self-care (01) ==
LOC: EC 10:07
DX: S91.322A Laceration with foreign body, left foot, initial encounter (principal); W22.8XXA Striking against or struck by other objects, initial encounter
CPT/HCPCS: 73620; 99283; J2001

== ENCOUNTER → 2021-02-21 | Outpatient (CLI) | payer OTHER | END | disposition home or self-care (01) | LOC: LABWHC1 12:03 | PROVIDERS: ATTEND Family Medicine | DX: R09.81 Nasal congestion (principal); R53.83 Other fatigue; R05.9 Cough, unspecified | CPT/HCPCS: U0003; C9803; U0005 ==

== ENCOUNTER 2021-04-22 19:52 | Emergency (ER) | payer OTHER ==
[2021-04-22 20:26] VITALS: BP 148/82; PULSE 83; RESP 20; TEMP 98.5
--- NOTE | 2021-04-22 21:21 | ED ---
URI HPI - General Chief Complaint: Upper Respiratory Infection Stated Complaint: loss of taste/smell-wants covid screening Time Seen by Provider: 04/22/21 21:11 Source: patient Mode of arrival: ambulatory Limitations: no limitations - History of Present Illness MD Complaint: cough, nasal congestion Onset/Timin -: hour(s) Improves With: nothing Worsens With: nothing Context: sick contacts Associated Symptoms: fever, chills, nasal congestion, cough Treatments Prior to Arrival: none - Related Data Home Medications Medication Instructions Recorded Confirmed Pnv,Calcium 72/Iron/Folic Acid 1 tab PO DAILY 11/07/15 05/21/16 [ Plus Tablet] Previous Rx's Medication Instructions Recorded Acetaminophen-Codeine 300-30mg 1 each PO Q4HR PRN #30 tab 05/26/16 [Tylenol w/codeine #3] Ibuprofen [Motrin] 600 mg PO Q6HR PRN #60 tab 05/26/16 Amoxicillin 500 mg PO Q8H 10 Days day 07/15/17 Allergies Allergy/AdvReac Type Severity Reaction Status Date / Time No Known Allergies Allergy Verified 04/22/21 20:26 Review of Systems ROS Statement: Those systems with pertinent positive or pertinent negative responses have been documented in the HPI. ROS Other: All systems not noted in ROS Statement are negative. Constitutional: Reports: fever, chills ENT: Reports: congestion. Denies: throat pain Respiratory: Reports: cough. Denies: dyspnea Cardiovascular: Denies: chest pain, palpitations, edema, syncope Endocrine: Reports: fatigue Gastrointestinal: Denies: abdominal pain, nausea, vomiting, diarrhea Genitourinary: Denies: dysuria, hematuria Musculoskeletal: Denies: back pain Skin: Denies: rash Neurological: Denies: headache, weakness, numbness Past Medical History Past Medical History: Asthma History of Any Multi-Drug Resistant Organisms: None Reported Past Surgical History: No Surgical Hx Reported Additional Past Surgical History / Comment(s): eye surgery as baby Past Anesthesia/Blood Transfusion Reactions: No Reported Reaction Past Psychological History: Depression Smoking Status: Never smoker Past Alcohol Use History: None Reported Past Drug Use History: Marijuana - Past Family History Father Family Medical History: No Reported History General Exam Limitations: no limitations General appearance: alert, in no apparent distress Head exam: Present: atraumatic, normocephalic Eye exam: Present: normal appearance. Absent: scleral icterus, conjunctival injection ENT exam: Present: normal oropharynx Neck exam: Present: normal inspection Respiratory exam: Present: normal lung sounds bilaterally. Absent: respiratory distress, wheezes, rales, rhonchi, stridor Cardiovascular Exam: Present: regular rate, normal rhythm, normal heart sounds. Absent: systolic murmur, diastolic murmur, rubs, gallop GI/Abdominal exam: Present: soft. Absent: distended, tenderness, guarding, rebound, rigid, mass Extremities exam: Present: normal inspection, normal capillary refill. Absent: pedal edema, calf tenderness Back exam: Present: normal inspection. Absent: CVA tenderness (R), CVA tenderness (L) Neurological exam: Present: alert Skin exam: Present: warm, dry, intact, normal color. Absent: rash Course Vital Signs 04/22/21 20:22 Temperature 98.5 F Pulse Rate 83 Respiratory 20 Rate Blood Pressure 148/82 O2 Sat by Pulse 99 Oximetry Medical Decision Making - Lab Data Lab Results 04/22/21 Range/Units 20:27 Coronavirus (PCR) Detected A (Not Detectd) Disposition Clinical Impression: COVID-19 Disposition: HOME SELF-CARE Condition: Good Instructions (If sedation given, give patient instructions): Coronavirus Disease 2019 (COVID-19) Is patient prescribed a controlled substance at d/c from ED?: No Referrals: Deborah Vasquez MD [Primary Care Provider] - 1-2 days
== END 2021-04-22 22:45 | disposition home or self-care (01) ==
LOC: EC 19:52
DX: U07.1 COVID-19 (principal); J45.909 Unspecified asthma, uncomplicated
CPT/HCPCS: 87635; 99283

== ENCOUNTER 2022-01-06 03:54 | Emergency (ER) | payer OTHER ==
[2022-01-06 03:59] VITALS: BP 159/98; PULSE 88; RESP 16; TEMP 98.3
[2022-01-06] MEDS ORDERED: IBUPROFEN 800 MG TAB PO STA (04:16)
[2022-01-06] MEDS ORDERED: CIPROFLOXACIN-DEXAMETH 0.3-0.1% DROPS 7.5 ML BTL LEFT EAR STA (04:16)
[2022-01-06] MEDS ORDERED: ACETAMINOPHEN TAB 500 MG TAB PO STA (04:16)
[2022-01-06] MEDS ORDERED: AMOXIC-POT CLAV 875-125MG 1 EACH TAB PO STA (04:16)
--- NOTE | 2022-01-06 04:18 | ED ---
ENT HPI - General Chief complaint: ENT Stated complaint: ear pain Time Seen by Provider: 01/06/22 04:00 Source: patient, RN notes reviewed, old records reviewed Mode of arrival: ambulatory Limitations: no limitations - History of Present Illness Initial comments: This is a 31-year-old female to the emergency department for evaluation she presents for upper respiratory for symptoms. Left-sided ear pain jaw pain and headache. No drainage, patient does have severe left-sided pain decreased hearing in that left ear as well. No fevers. No other complaints MD complaint: ear pain -: days(s) Location: L ear Severity: severe Severity scale (1-10): 9 Quality: stabbing, aching Consistency: constant Improves with: none Worsens with: swallowing Context- Ear: recent illness, recent swimming Associated Symptoms: tinnitus - Related Data Home Medications Medication Instructions Recorded Confirmed Pnv,Calcium 72/Iron/Folic Acid 1 tab PO DAILY 11/07/15 05/21/16 [ Plus Tablet] Previous Rx's Medication Instructions Recorded Acetaminophen-Codeine 300-30mg 1 each PO Q4HR PRN #30 tab 05/26/16 [Tylenol w/codeine #3] Ibuprofen [Motrin] 600 mg PO Q6HR PRN #60 tab 05/26/16 Amoxicillin 500 mg PO Q8H 10 Days day 07/15/17 Amoxic-Pot Clav 875-125Mg 1 tab PO Q12HR #20 tablet 01/06/22 [Augmentin 875-125] Allergies Allergy/AdvReac Type Severity Reaction Status Date / Time No Known Allergies Allergy Verified 01/06/22 03:56 Review of Systems ROS Statement: Those systems with pertinent positive or pertinent negative responses have been documented in the HPI. ROS Other: All systems not noted in ROS Statement are negative. Past Medical History Past Medical History: Asthma History of Any Multi-Drug Resistant Organisms: None Reported Past Surgical History: No Surgical Hx Reported Additional Past Surgical History / Comment(s): eye surgery as baby Past Anesthesia/Blood Transfusion Reactions: No Reported Reaction Past Psychological History: Depression Smoking Status: Never smoker Past Alcohol Use History: None Reported Past Drug Use History: Marijuana - Past Family History Father Family Medical History: No Reported History General Exam Limitations: no limitations General appearance: alert, in no apparent distress Head exam: Present: atraumatic, normocephalic, normal inspection Eye exam: Present: normal appearance, PERRL, EOMI. Absent: scleral icterus, conjunctival injection, periorbital swelling ENT exam: Present: normal exam, mucous membranes moist. Absent: TM's normal bilaterally (Left otitis externa) Neck exam: Present: normal inspection. Absent: tenderness, meningismus, lymphadenopathy Respiratory exam: Present: normal lung sounds bilaterally. Absent: respiratory distress, wheezes, rales, rhonchi, stridor Cardiovascular Exam: Present: regular rate, normal rhythm, normal heart sounds. Absent: systolic murmur, diastolic murmur, rubs, gallop, clicks GI/Abdominal exam: Present: soft, normal bowel sounds. Absent: distended, tenderness, guarding, rebound, rigid Extremities exam: Present: normal inspection, full ROM, normal capillary refill. Absent: tenderness, pedal edema, joint swelling, calf tenderness Back exam: Present: normal inspection Neurological exam: Present: alert, oriented X3, CN II-XII intact Psychiatric exam: Present: normal affect, normal mood Skin exam: Present: warm, dry, intact, normal color. Absent: rash Course Vital Signs 01/06/22 03:56 Temperature 98.3 F Pulse Rate 88 Respiratory 16 Rate Blood Pressure 159/98 O2 Sat by Pulse 98 Oximetry - Reevaluation(s) Reevaluation #1: 01/06/22 Record is reviewed Patient symptoms are improved here in the ER Patient is informed of results and questions are answered Medical Decision Making - Medical Decision Making 31 female emergency department for evaluation of ear pain left-sided. She has have otitis externa likely otitis media based on symptoms patient replacement antibiotics and can be discharged home Disposition Clinical Impression: Otitis media, Otitis externa, Left otitis externa Disposition: HOME SELF-CARE Condition: Good Instructions (If sedation given, give patient instructions): Ear Infection (ED) Prescriptions: Amoxic-Pot Clav 875-125Mg [Augmentin 875-125] 1 tab PO Q12HR #20 tablet Is patient prescribed a controlled substance at d/c from ED?: No Referrals: Deborah Vasquez MD [Primary Care Provider] - 1-2 days Time of Disposition: 04:10
== END 2022-01-06 04:37 | disposition home or self-care (01) ==
LOC: EC 03:54
DX: H60.92 Unspecified otitis externa, left ear (principal); J45.909 Unspecified asthma, uncomplicated
CPT/HCPCS: 99282